=== PATIENT | male | born 1945 | race Caucasian/White ===

== ENCOUNTER 2016-12-04 17:43 | Inpatient (IN) | payer MEDICARE, OTHER ==
[~2016-12-04] VITALS: Ht 172.7 cm; Wt 79.2 kg
[2016-12-04] MEDS ORDERED: SOD CHLORIDE 0.9% 1,000 ML IV STA (18:17)
[2016-12-04] MEDS ORDERED: OMEP20CA16 PO (18:31)
[2016-12-04] MEDS ORDERED: CARV3.1260 PO (18:31)
[2016-12-04] MEDS ORDERED: CEFU500T45 PO (18:31)
[2016-12-04] MEDS ORDERED: DICL75TA2 PO (18:32)
[2016-12-04] MEDS ORDERED: SERT25TA PO (18:32)
[2016-12-04] MEDS ORDERED: SIMV20TA PO (18:32)
[2016-12-04 18:41] LABS: BASOPHIL # 0.1 10^3/ul (0.0-0.1); BASOPHILS % 0.4 % (0.0-2.0); EOSINOPHILS # 0.1 10^3/ul (0.0-0.5); EOSINOPHILS % 0.7 % (0.0-7.0); HEMATOCRIT 41.2 % (42.0-52.0); HEMOGLOBIN 14.3 g/dl (14.0-18.0); LYMPHOCYTES # 2.1 10^3/ul (0.8-2.9); LYMPHOCYTES % 15.5 % (15.0-51.0); MEAN CORPUSCULAR HEMOGLOBIN 30.3 pg (29.0-33.0); MEAN CORPUSCULAR HGB CONC 34.7 g/dl (32.0-37.0); MEAN CORPUSCULAR VOLUME 87.3 fl (82.0-101.0); MEAN PLATELET VOLUME 9.6 fl (7.4-10.4); MONOCYTE # 1.1 10^3/ul (0.3-0.9); MONOCYTES % 7.6 % (0.0-11.0); NEUTROPHILS % 74.9 % (39.0-77.0); PLATELET COUNT 277 10^3/UL (140-415); RED BLOOD COUNT 4.72 10^6/ul (4.70-6.10); WHITE BLOOD COUNT 13.8 10^3/ul (4.8-10.8)
[2016-12-04 19:04] LABS: INR 1.04; PROTIME 13.6 Sec (12.2-14.2); PT RATIO 1.1
[2016-12-04 19:05] LABS: PARTIAL THROMBOPLASTIN TIME 25.4 Sec (25.0-35.0)
[2016-12-04 19:07] LABS: CALCIUM 9.4 mg/dl (8.4-10.2); CREATININE 2.23 mg/dl (0.61-1.24); POTASSIUM 3.7 mmol/L (3.5-5.1)
--- NOTE | 2016-12-04 19:14 | RADRPT ---
PROCEDURE: XR Chest. CLINICAL INDICATION: Syncope. TECHNIQUE: Single frontal view of the chest. COMPARISON: None. FINDINGS: The cardiomediastinal silhouette is within normal limits. The lungs are clear. No signs of pleural f luid or pneumothorax are seen. The osseous structures and soft tissues are unremarkable. IMPRESSION: No evidence for active cardiopulmonary disease. RPTAT: [facility] Physician Joseph Date Time Electronically viewed and signed by Physician Joseph on 12/04/2016 19:13 RS/
[2016-12-04 19:19] LABS: TROPONIN-I 0.013 ng/ml (0.00-0.12)
[2016-12-04 20:51] LABS: CK-MB 1.25 ng/ml (0.0-2.4)
[2016-12-04 21:16] VITALS: TEMP 98.3
[2016-12-04] MEDS ORDERED: ONDANSETRON 4 MG INJ IV PRN ×2 (22:00→23:30)
[2016-12-04] MEDS ORDERED: ACETAMINOPHEN 325 MG TAB PO PRN (22:00)
[2016-12-04 22:08] LABS: ADD UMIC YES; UR ASCORBIC ACID NEGATIVE (NEGATIVE); UR BILIRUBIN (Dip) NEGATIVE (NEGATIVE); UR BLOOD (Dip) NEGATIVE (NEGATIVE); UR CLARITY SLIGHTLY CLOUDY (CLEAR); UR COLOR YELLOW (YELLOW); UR GLUCOSE (Dip) NEGATIVE (NEGATIVE); UR KETONES (Dip) NEGATIVE (NEGATIVE); UR LEUKOCYTE ESTERASE (Dip) NEGATIVE Leu/ul (NEGATIVE); UR MUCUS MODERATE /HPF (NONE SEEN); UR NITRITE (Dip) NEGATIVE (NEGATIVE); UR RBC 1 /HPF (0-5); UR SPECIFIC GRAVITY (Dip) 1.019 (1.003-1.030); UR TOTAL PROTEIN (Dip) 1+ mg/dl (NEGATIVE); UR UROBILINOGEN (Dip) NEGATIVE (NEGATIVE)
[2016-12-04 22:52] VITALS: Ht 172.7 cm; Wt 79.2 kg
[2016-12-04] MEDS ORDERED: morphine 2 MG INJ IV PRN (23:30)
--- NOTE | 2016-12-04 23:43 | ERA ---
ER Documentation Chief Complaint Date/Time DATE: 12/04/16 TIME: 23:20 Chief Complaint BIB RA FOR EVAL OF HYPOTENSION. 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 When EMS arrived, the patient' s blood pressure was very low with a systolic in the 40s. IV fluids were given with improvement of his systolic to the 70s. Patient now feels back to his normal self. 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 She did drink plenty of water but did not eat anything. When he went home, he laid on a hammock. While he was on the hammock, he felt very lightheaded and called out to his . His states that he became very pale and unresponsive. Per his son, he was able to moan when he was sternally rubbed, but did not see any comprehensible things. Patient denies chest pain, shortness of breath, headache, vision disturbance, focal weakness or numbness at this time. He denies dysuria. He is on antibiotics at this time and he states is for pain in his right groin. He is unable to explain otherwise ROS All systems reviewed and are negative except as per history of present illness. Medications Home Meds Reported Medications Diclofenac Sodium* (Diclofenac Sodium*) 75 Mg Tablet., 75 MG PO BID, #60 TAB 12/04/16 Sertraline Hcl* (Zoloft*) 25 Mg Tablet, 25 MG PO DAILY, #30 TAB 12/04/16 Simvastatin* (Zocor*) 20 Mg Tablet, 20 MG PO QHS, #30 TAB 12/04/16 Omeprazole* (Omeprazole*) 20 Mg Capsule., 20 MG PO DAILY, #30 CAP 12/04/16 Carvedilol* (Carvedilol*) 3.125 Mg Tablet, 3.125 MG PO DAILY, #60 TAB 12/04/16 Cefuroxime Axetil* (Cefuroxime Axetil*) 500 Mg Tablet, 500 MG PO BID, TAB STARTED 11-24-16 FOR 14 DAYS 12/04/16 Allergies Allergies: Coded Allergies: No Known Allergy (Unverified , 12/04/16) PMhx/Soc Medical and Surgical Hx: pt denies Medical Hx, pt denies Surgical Hx History of Surgery: No Anesthesia Reaction: No Hx Neurological Disorder: No Hx Respiratory Disorders: No Hx Cardiac Disorders: No Hx Psychiatric Problems: No Hx Miscellaneous Medical Probl: No Hx Alcohol Use: Yes (socially) Hx Substance Use: No Hx Tobacco Use: No Smoking Status: Never smoker FmHx Family History: No diabetes Physical Exam Vitals Vital Signs Date Time Temp Pulse Resp B/P Pulse Ox O2 Delivery O2 Flow Rate FiO2 12/04/16 21:16 98.3 57 14 128/89 97 Room Air 12/04/16 18:17 93/64 12/04/16 17:53 97.9 66 16 79/64 100 Physical Exam Const: Well-appearing, no distress, not diaphoretic Head: Atraumatic Eyes: Normal Conjunctiva, PERRLA, EOMI ENT: Normal External Ears, Nose and Mouth. Neck: Full range of motion..~ No meningismus.No JVD Resp: Clear to auscultation bilaterally Cardio: Regular rate and rhythm, no murmurs. 2+ distal pulses Abd: Soft, non tender, non distended. Normal bowel sounds Skin: No petechiae or rashes Back: No midline or flank tenderness Ext: No cyanosis, or edema Neur: Awake and alert And oriented 3, cranial nerves intact, strength and sensations intact in all 4 extremity Psych: Normal Mood and Affect Result Diagram: 12/04/16182412/04/161824 Results 24 hrs Laboratory Tests Test 12/04/16 18:00 12/04/16 18:25 12/04/16 18:49 12/04/16 21:35 Creatine Kinase 175IU/L Creatinine Kinase MB (Mass) 1.25ng/ml White Blood Count 13.810^3/ul Red Blood Count 4.7210^6/ul Hemoglobin 14.3g/dl Hematocrit 41.2% Mean Corpuscular Volume 87.3fl Mean Corpuscular Hemoglobin 30.3pg Mean Corpuscular Hemoglobin Concent 34.7g/dl Red Cell Distribution Width 14.0% Platelet Count 83389^3/UL Mean Platelet Volume 9.6fl Neutrophils % 74.9% Lymphocytes % 15.5% Monocytes % 7.6% Eosinophils % 0.7% Basophils % 0.4% Nucleated Red Blood Cells % 0.0/100WBC Neutrophils # (Manual) 10.310^3/ul Lymphocytes # 2.110^3/ul Monocytes # 1.110^3/ul Eosinophils # 0.110^3/ul Basophils # 0.110^3/ul Nucleated Red Blood Cells # 0.010^3/ul Prothrombin Time 13.6Sec Prothrombin Time Ratio 1.1 INR International Normalized Ratio 1.04 Activated Partial Thromboplast Time 25.4Sec Sodium Level 142mmol/L Potassium Level 3.7mmol/L Chloride Level 106mmol/L Carbon Dioxide Level 21mmol/L Anion Gap 19 Blood Urea Nitrogen 21mg/dl Creatinine 2.23mg/dl Glucose Level 121mg/dl Calcium Level 9.4mg/dl Troponin I 0.013ng/ml Bedside Glucose 132mg/dL Urine Color YELLOW Urine Clarity SLIGHTLY CLOUDY Urine pH 5.0 Urine Specific [place] 1.019 Urine Ketones NEGATIVEmg/dL Urine Nitrite NEGATIVEmg/dL Urine Bilirubin NEGATIVEmg/dL Urine Urobilinogen NEGATIVEmg/dL Urine Leukocyte Esterase NEGATIVELeu/ul Urine Microscopic RBC 1/HPF Urine Microscopic WBC 3/HPF Urine Hyaline Casts FEW/HPF Urine Mucus MODERATE/HPF Urine Hemoglobin NEGATIVEmg/dL Urine Glucose NEGATIVEmg/dL Urine Total Protein 1+mg/dl Current Medications Medications (Trade) Dose Ordered Sig/Isaiah Route PRN Reason Start Time Stop Time Status Last Admin Dose Admin Sodium Chloride (NS) 1,000 ml @ 1,000 mls/hr Q1H STAT IV 12/04/16 18:17 12/04/16 19:16 DC 12/04/16 18:22 Procedures/MDM Labs CBC: Leukocytosis without left shift CMP: No evidence of electrolyte abnormality, elevated BUN and creatinine consistent with renal failure Troponin within normal limits CK and CK-MB within normal limits UA: no evidence of infection Chest x-ray shows no acute abnormalities EKG# 1 NSR Intervals normal No acute ST/T abnormalities EKG# 2 SB Intervals normal No acute ST/T abnormalities [facility] Patient presented after syncopal episode. When he arrived, IV fluids were started. The patient symptomatically had improved. He has no symptoms of acute coronary syndrome or aortic dissection. I do not suspect pulmonary embolism. I do not suspect serious bacterial infection. Labs were consistent with acute renal failure which seems to be intrinsic. Patient's syncopal symptoms are unstable at this time and require inpatient workup. No evidence of PE or dissection at this time but occult ischemia or fatal dysrhythmia cannot be ruled out. Accepting Care Team: Current data and ongoing care discussed. Time: Time of admission Primary Provider: Rahda Consulting: none Outstanding Data: none Departure Diagnosis: Primary Impression: Syncopal episodes Qualified Code: R55 - Syncope, unspecified syncope type Additional Impressions: Hypotension Qualified Code: I95.9 - Hypotension, unspecified hypotension type Acute renal failure Qualified Code: N17.9 - Acute renal failure, unspecified acute renal failure type Condition: Serious SIDNEY GARCIA MD Dec 04, 2016 23:42
[2016-12-05] VITALS (10 sets, daily range): BP systolic 108–126; BP diastolic 66–72; PULSE 46–58; RESP 17–20
[2016-12-05] MEDS ORDERED: SOD CHLORIDE 0.9% 1,000 ML IV ONE ×2 (02:00)
--- NOTE | 2016-12-05 02:03 | HP ---
Date/Time of Note Date/Time of Note DATE: 12/05/16 TIME: 01:51 Assessment/Plan VTE Prophylaxis VTE Prophylaxis Intervention: heparin Assessment/Plan Assessment/Plan 1. Syncope, secondary to hypotension as a result of dehydration -Continue IV fluid -will trend troponin -Obtain a 2D echo and also carotid Doppler ultrasound -Cardiology consult as needed 2. Acute kidney injury, secondary to decreased renal perfusion as a result of dehydration -Continue IV fluid -will check a.m. lab and decide about renal ultrasound and nephrology consult 3. History of hypertension: Patient was initially hypotensive but now blood pressure within goal - will hold antihypertensives for now and resume as needed 4. History of dyslipidemia -will check fasting lipid in a.m. -Continue statin 5. History of depression -Continue Zoloft HPI/ROS Admit Date/Time Admit Date/Time Dec 04, 2016 at 21:36 Hx of Present Illness This is a 70-year-old male with history of hypertension, dyslipidemia, depression who presented to the emergency department complaining of loss of consciousness and lightheadedness. Patient was working outside the whole day and when he got back home he felt lightheaded and had a syncopal episode. According to family, he was unconscious even though was making sounds when he was stimulated. He did not eat the whole day even though he was drinking plenty of water. He denied chest pain, shortness of breath, palpitations, headache or seizure-like activity. When EMS arrived, he is a systolic blood pressure was in the 40s which improved to 70s after IV fluids. When he presented to the ER, initial blood pressure was 76/64 with a heart rate of 66. Labs shows a WBC of 13.6 and a creatinine of 2.23. Chest x-ray was no active disease and a urinalysis without UTI. Patient was given a liter of NS IVF. His blood pressure eventually improved to 128/89. His heart rate however is been noted to be as low as 46. EKG was no ST-T wave abnormalities. . PMH/Family/Social Social History Smoking Status: Never smoker Exam/Review of Systems Vital Signs Vitals Vital Signs Date Time Temp Pulse Resp B/P Pulse Ox O2 Delivery O2 Flow Rate FiO2 12/05/16 00:30 46 12/04/16 21:16 98.3 14 128/89 97 Room Air Exam Constitutional: alert, oriented, well developed Head: atraumatic, normocephalic Eyes: EOMI, PERRL Respiratory: clear to auscultation, normal air movement Cardiovascular: other (bradycardic with regular rhythm) Gastrointestinal: non-tender, soft Extremities: normal pulses Labs Result Diagram: 12/04/16182412/04/161824 Medications Medications Current Medications Ondansetron HCl (Zofran Inj) 4 mg Q6 PRN IV NAUSEA AND/OR VOMITING; Start at 23:30 Morphine Sulfate (morphine) 2 mg Q4 PRN IV PAIN; Start 12/04/16 at 23:30 Heparin Sodium (Porcine) (Heparin (5000 Units/0.5 ml)) 5,000 unit Q12 SC ; Start 12/04/16 at 23:00 Famotidine (Pepcid Iv) 20 mg DAILY IV ; Start 12/05/16 at 09:00 Sertraline HCl (Zoloft) 25 mg DAILY PO ; Start 12/05/16 at 09:00 Atorvastatin Calcium 20 mg 20 mg HS PO ; Start 12/04/16 at 23:30 Sodium Chloride (NS) 1,000 ml @ 100 mls/hr Q10H ONCE IV ; Start 12/05/16 at 00: 00; Stop 12/05/16 at 09:59 ARTIS CARBALLO MD Dec 05, 2016 02:03
[2016-12-05] MEDS: ATORVASTATIN 20 MG TAB PO SCH ×2 (03:45→21:31)
[2016-12-05] MEDS: HEPARIN 5,000 UNIT/0.5 ML VIAL SC SCH ×3 (03:53→21:32)
[2016-12-05 07:43] LABS: BASOPHILS % 0.4 % (0.0-2.0); EOSINOPHILS # 0.1 10^3/ul (0.0-0.5); EOSINOPHILS % 1.8 % (0.0-7.0); HEMATOCRIT 37.3 % (42.0-52.0); HEMOGLOBIN 12.7 g/dl (14.0-18.0); LYMPHOCYTES # 2.2 10^3/ul (0.8-2.9); LYMPHOCYTES % 27.7 % (15.0-51.0); MEAN CORPUSCULAR HEMOGLOBIN 29.9 pg (29.0-33.0); MEAN CORPUSCULAR VOLUME 87.8 fl (82.0-101.0); MEAN PLATELET VOLUME 9.4 fl (7.4-10.4); MONOCYTE # 0.5 10^3/ul (0.3-0.9); MONOCYTES % 6.8 % (0.0-11.0); NEUTROPHILS % 62.7 % (39.0-77.0); PLATELET COUNT 234 10^3/UL (140-415); RED BLOOD COUNT 4.25 10^6/ul (4.70-6.10); RED CELL DISTRIBUTION WIDTH 14.3 % (11.5-14.5)
[2016-12-05 08:10] LABS: ALBUMIN 3.8 g/dl (3.3-4.9); ALBUMIN/GLOBULIN RATIO 1.46; BILIRUBIN,INDIRECT 0.4 mg/dl (0-1.1); BILIRUBIN,TOTAL 0.4 mg/dl (0.2-1.3); CALCIUM 8.6 mg/dl (8.4-10.2); CHOL/HDL RATIO 3.5 RATIO; CREATININE 0.8 mg/dl (0.61-1.24); MAGNESIUM 2.4 mg/dl (1.7-2.5); PHOSPHORUS 3.8 mg/dl (2.5-4.9); TOTAL PROTEIN 6.4 g/dl (6.1-8.1)
[2016-12-05] MEDS: FAMOTIDINE 20 MG INJ IV SCH (08:18)
[2016-12-05] MEDS: SERTRALINE 50 MG TAB PO SCH (08:18)
[2016-12-05 10:23] LABS: THYROID STIMULATING HORMONE 0.922 MIU/L (0.465-4.680)
--- NOTE | 2016-12-05 14:14 | PN ---
Date/Time of Note Date/Time of Note DATE: 12/05/16 TIME: 14:11 Assessment/Plan VTE Prophylaxis VTE Prophylaxis Intervention: heparin Lines/Catheters IV Catheter Type (from [facility], [place]): Peripheral IV Urinary Cath still in place: No Assessment/Plan Problems: (1) Bradycardia Status: Acute Comment: After syncopal event he was being monitored. Monitor shows consistent bradycardia dysrhythmia. Been no other rhythm disturbances picked up yet. Because of this I will get a formalized cardiology consultation I am going to hold his beta-blockade. Please note the beta-blockade was at very low- dose (2) Hyperlipidemia Status: Chronic Comment: Continue with statin therapy. Please note the myalgias and statins should not have accounted for his presentation Qualifiers: Hyperlipidemia type: pure hypercholesterolemia Qualified Code: E78.00 - Pure hypercholesterolemia (3) Acute renal failure Status: Resolved Qualifiers: Acute renal failure type: unspecified Qualified Code: N17.9 - Acute renal failure, unspecified acute renal failure type Subjective 24 Hr Interval Summary Free Text/Dictation Charming but very stoic gentleman lying in bed patient informs that over the last year he has had intermittent episodes of lightheadedness with a few near syncope. He has been seen by his physician who apparently had prescribed carvedilol at very low dose. He had had a formalized syncopal event yesterday Constitutional: no complaints Respiratory: no complaints Cardiovascular: no complaints (Denies known palpitations, PND, orthopnea) Gastrointestinal: no complaints Exam/Review of Systems Vital Signs Vitals Vital Signs Date Time Temp Pulse Resp B/P Pulse Ox O2 Delivery O2 Flow Rate FiO2 12/05/16 12:07 52 12/05/16 12:07 98.2 17 120/69 93 12/04/16 21:16 Room Air Exam Constitutional: alert, oriented Respiratory: clear to auscultation, normal air movement Cardiovascular: nl pulses, regular rate and rhythm Gastrointestinal: nl liver, spleen, non-tender, soft Results Result Diagram: 12/05/16 0724 12/05/16 0724 Results 24 hrs Laboratory Tests Test 12/04/16 18:00 12/04/16 18:25 12/04/16 18:49 12/04/16 21:35 Creatine Kinase 175 Creatinine Kinase MB (Mass) 1.25 White Blood Count 13.8 H Red Blood Count 4.72 Hemoglobin 14.3 Hematocrit 41.2 L Mean Corpuscular Volume 87.3 Mean Corpuscular Hemoglobin 30.3 Mean Corpuscular Hemoglobin Concent 34.7 Red Cell Distribution Width 14.0 Platelet Count 277 Mean Platelet Volume 9.6 Neutrophils % 74.9 Lymphocytes % 15.5 Monocytes % 7.6 Eosinophils % 0.7 Basophils % 0.4 Nucleated Red Blood Cells % 0.0 Neutrophils # (Manual) 10.3 H Lymphocytes # 2.1 Monocytes # 1.1 H Eosinophils # 0.1 Basophils # 0.1 Nucleated Red Blood Cells # 0.0 Prothrombin Time 13.6 Prothrombin Time Ratio 1.1 INR International Normalized Ratio 1.04 Activated Partial Thromboplast Time 25.4 Sodium Level 142 Potassium Level 3.7 Chloride Level 106 Carbon Dioxide Level 21 Anion Gap 19 H Blood Urea Nitrogen 21 H Creatinine 2.23 H Glucose Level 121 Calcium Level 9.4 Troponin I 0.013 Bedside Glucose 132 Urine Color YELLOW Urine Clarity SLIGHTLY CLOUDY A Urine pH 5.0 Urine Specific [place] 1.019 Urine Ketones NEGATIVE Urine Nitrite NEGATIVE Urine Bilirubin NEGATIVE Urine Urobilinogen NEGATIVE Urine Leukocyte Esterase NEGATIVE Urine Microscopic RBC 1 Urine Microscopic WBC 3 Urine Hyaline Casts FEW A Urine Mucus MODERATE Urine Hemoglobin NEGATIVE Urine Glucose NEGATIVE Urine Total Protein 1+ H Test 12/05/16 00:06 12/05/16 07:24 12/05/16 13:12 Troponin I < 0.012 < 0.012 White Blood Count 8.0 # Red Blood Count 4.25 L Hemoglobin 12.7 L Hematocrit 37.3 L Mean Corpuscular Volume 87.8 Mean Corpuscular Hemoglobin 29.9 Mean Corpuscular Hemoglobin Concent 34.0 Red Cell Distribution Width 14.3 Platelet Count 234 Mean Platelet Volume 9.4 Neutrophils % 62.7 Lymphocytes % 27.7 Monocytes % 6.8 Eosinophils % 1.8 Basophils % 0.4 Nucleated Red Blood Cells % 0.0 Neutrophils # (Manual) 5.0 Lymphocytes # 2.2 Monocytes # 0.5 Eosinophils # 0.1 Basophils # 0.0 Nucleated Red Blood Cells # 0.0 Sodium Level 140 Potassium Level 4.0 Chloride Level 109 Carbon Dioxide Level 23 Anion Gap 12 # Blood Urea Nitrogen 19 Creatinine 0.80 # Glucose Level 96 Hemoglobin A1c 5.7 Calcium Level 8.6 Phosphorus Level 3.8 Magnesium Level 2.4 Total Bilirubin 0.4 Direct Bilirubin 0.00 Indirect Bilirubin 0.4 Aspartate Amino Transf (AST/SGOT) 42 Alanine Aminotransferase (ALT/SGPT) 58 Alkaline Phosphatase 54 Total Protein 6.4 Albumin 3.8 Globulin 2.60 Albumin/Globulin Ratio 1.46 Triglycerides Level 113 Cholesterol Level 151 LDL Cholesterol, Calculated 85 HDL Cholesterol 43 Cholesterol/HDL Ratio 3.5 Thyroid Stimulating Hormone (TSH) 0.922 Lab Scanned Report LAB Medications Medications Current Medications Ondansetron HCl (Zofran Inj) 4 mg Q6 PRN IV NAUSEA AND/OR VOMITING; Start at 23:30 Morphine Sulfate (morphine) 2 mg Q4 PRN IV PAIN; Start 12/04/16 at 23:30 Heparin Sodium (Porcine) (Heparin (5000 Units/0.5 ml)) 5,000 unit Q12 SC Last administered on 12/05/16 08:19; Admin Dose 5,000 UNIT; Start 12/04/16 at 23:00 Famotidine (Pepcid Iv) 20 mg DAILY IV Last administered on 12/05/16 08:18; Admin Dose 20 MG; Start 12/05/16 at 09:00 Sertraline HCl (Zoloft) 25 mg DAILY PO Last administered on 12/05/16 08:18; Admin Dose 25 MG; Start 12/05/16 at 09:00 Atorvastatin Calcium (Lipitor) 20 mg HS PO Last administered on 12/05/16 03:45 ; Admin Dose 20 MG; Start 12/04/16 at 23:30 REBECA PALMA MD Dec 05, 2016 14:14
--- NOTE | 2016-12-05 19:26 | RADRPT ---
PROCEDURE: US Carotids. CLINICAL INDICATION: Syncope. TECHNIQUE: Sonographic images of the bilateral carotid arteries were obtained using berry scale and color Doppler imaging. The images were reviewed on a PACS workstation. COMPARISON: None available. FINDINGS: Right: CCA 75-88 cm/sec Prox ICA 51 cm/sec Mid ICA 47 cm/sec Dist ICA 55 cm/sec ECA 87 cm/sec ICA/CCA 0.7 Left: CCA 82-101 cm/sec Prox ICA 53 cm/sec Mid ICA 72 cm/sec Dist ICA 64 cm/sec ECA 85 cm/sec ICA/CCA 0.9 Antegrade flow is seen within the vertebral arteries bilaterally. There is mild noncalcified plaque in the common carotid arteries bilaterally and mild mixed plaque in the right carotid bulb. There i s no flow-limiting stenosis or thrombosis. IMPRESSION: 1. No evidence of hemodynamically significant internal carotid artery stenosis bilaterally. 2. Antegrade flow seen within the vertebral arteries bilaterally. RPTAT: HLBP Validated velocity measurements with angiographic measurements, velocity criteria are extrapolated f rom diameter data as defined by the Society of Radiologists in Ultrasound Consensus Conference Radio logy 2003; 229;340-346. This study does indirectly reference the measurement of the distal ICA diame ter as the denominator for stenosis measurement. SRU Consensus Conference Criteria for the Diagnosis of Carotid Artery Stenosis Degree of Stenosis, % ICA PSV, cm/sec Plaque Estimate, % ICA/CCA PSV Ratio Normal <125 None <2.0 <50 <125 <50 <2.0 50 69 125-230 >50 2.0-4.0 >70 but less than near occlusion >230 >50 <4.0 Near occlusion High, low, or undetectable Visible Variable Total occlusion Undetectable Visible, no detectable lumen Not applicable .Fredi Monet MD, MD Date Time Electronically viewed and signed by .Fredi Monet MD, MD on 12/05/2016 19:26 .P/
[2016-12-06] VITALS (12 sets, daily range): BP systolic 123–153; BP diastolic 66–79; PULSE 40–58; RESP 20
[2016-12-06] MEDS: SERTRALINE 50 MG TAB PO SCH (08:59)
[2016-12-06] MEDS: FAMOTIDINE 20 MG INJ IV SCH (08:59)
[2016-12-06] MEDS: HEPARIN 5,000 UNIT/0.5 ML VIAL SC SCH ×2 (09:02→20:56)
--- NOTE | 2016-12-06 09:15 | PN ---
Date/Time of Note Date/Time of Note DATE: 12/06/16 TIME: 09:13 Assessment/Plan VTE Prophylaxis VTE Prophylaxis Intervention: heparin Lines/Catheters IV Catheter Type (from Nrs): Peripheral IV Urinary Cath still in place: No Assessment/Plan Assessment/Plan 1. Syncope secondary to dehydration vs bradycardia - Cardiology on board and recommendations appreciated - ECHO performed and awaiting results. - Will determine if stress test needed based on findings - Continue monitoring with fall precautions - Still bradycardic with HR in the 40s but asymptomatic - Carotid US performed and reviewed. Negative for stenosis 2. hyperlipidemia - Continue on statin therapy 3. Acute renal failure secondary to dehydrations- resolved. - renal function appears back to baseline 4. h/o hypertension - BP stable but slowing 5. h/o depression - Continue Zoloft Previous labs, imaging, and notes all reviewed. Subjective 24 Hr Interval Summary Free Text/Dictation Patient seen and examined at bedside. Denies any further episodes of syncope. Denies any chest pain, dizziness, shortness of breath, nausea, vomiting, or abdominal issues. Family at bedsides and all questions addressed and answered. Exam/Review of Systems Vital Signs Vitals Vital Signs Date Time Temp Pulse Resp B/P Pulse Ox O2 Delivery O2 Flow Rate FiO2 12/06/16 08:07 58 12/06/16 08:07 98.2 20 123/70 96 12/04/16 21:16 Room Air Intake and Output 12/05/16 12/05/16 12/06/16 15:00 23:00 07:00 Intake Total 950 ml Balance 950 ml Exam Constitutional: alert, oriented, in no acute distress Respiratory: clear to auscultation, normal air movement, no wheezing, rhonchi, or rales Cardiovascular: nl pulses, regular rate and rhythm, no murmurs Gastrointestinal: nl liver, spleen, non-tender, soft, nondistended Extremities: No edema, ecchymosis or cyanosis. No joint tenderness Results Result Diagram: 12/05/1672312/05/16723 Results 24 hrs Laboratory Tests Test 12/05/16 13:12 Lab Scanned Report LAB Medications Medications Current Medications Ondansetron HCl (Zofran Inj) 4 mg Q6 PRN IV NAUSEA AND/OR VOMITING; Start at 23:30 Morphine Sulfate (morphine) 2 mg Q4 PRN IV PAIN; Start 12/04/16 at 23:30 Heparin Sodium (Porcine) (Heparin (5000 Units/0.5 ml)) 5,000 unit Q12 SC Last administered on 12/05/16 21:32; Admin Dose 5,000 UNIT; Start 12/04/16 at 23:00 Famotidine (Pepcid Iv) 20 mg DAILY IV Last administered on 12/05/16 08:18; Admin Dose 20 MG; Start 12/05/16 at 09:00 Sertraline HCl (Zoloft) 25 mg DAILY PO Last administered on 12/05/16 08:18; Admin Dose 25 MG; Start 12/05/16 at 09:00 Atorvastatin Calcium (Lipitor) 20 mg HS PO Last administered on 12/05/16 21:31 ; Admin Dose 20 MG; Start 12/04/16 at 23:30 MARSHA POWERS MD Dec 06, 2016 09:15
--- NOTE | 2016-12-06 15:03 | RADRPT ---
Echocardiogram Report Patient Name: SILVIO CASTELLANOS Gender: Male Date: 1945 Study Date: 05-Dec-2016 [employer] Equipment: [id number] Location: I Ref. Physician: ARTIS CARBALLO Quality: Adequate Procedures: Transthoracic echocardiogram with 2D, M-Mode, and Doppler examination. Indications: Hypotension. Syncope. 2D/M Mode Doppler Measurement Value Normal Ranges Measurement Value Normal Ranges AoR Diam MM 4.0 cm AV Peak Kristopher 1.1 m/sec ACS MM 2.2 cm AV Peak PG 5.1 mmHg LVIDd 2D 4.6 3.5 - 5.6 cm LVOT Peak Kristopher 0.9 m/sec LVIDs 2D 3.4 2.1 - 4.1 cm LVOT Peak PG 3.1 mmHg LVPWd 2D 1.1 0.6 - 1.1 cm MV E Peak Kristopher 0.4 m/sec IVSd 2D 1.1 0.6 - 1.1 cm MV A Peak Kristopher 0.6 m/sec EDV 2D 97.2 cm3 MV E/A 0.7 ESV 2D 39.8 cm3 MV Decel Time 310 msec LA Dimen 2D 3.4 2.3 - 4.0 cm MV Decel [place] 1 MV E/A 0.7 TR Peak Kristopher 2.0 m/sec TR Peak PG 15.7 mmHg RVSP 18.7 mmHg Findings Left Ventricle: Normal left ventricular systolic function. Normal left ventricular cavity size. Normal left ventricular wall thickness. Left ventricular wall thickness upper limits of normal. Ejection fraction is visually estimated at 50 %. Tissue Doppler/Mitral Doppler indices are within normal limits. E/E`=4. Right Ventricle: Normal right ventricular size. Normal right ventricular systolic function. Left Atrium: The left atrium is normal in size. Right Atrium: The right atrium is normal in size. Atrial Septum: Normal atrial septum. Mitral Valve: Normal appearance of the mitral valve. No mitral valve regurgitation is seen. Aortic Valve: Normal appearance of the aortic valve. No significant aortic stenosis or insufficiency. Tricuspid Valve: Normal appearance of the tricuspid valve. Estimated peak PA systolic pressure 19 mmHg. There is trace tricuspid regurgitation. Pulmonic Valve: Pulmonic valve not well visualized. Pericardium: Normal pericardium with no significant pericardial effusion. Aorta: There is mild aortic root dilation. Sinus of valsalva: 4 cm. Sinotubular junction: 3 cm. IVC: IVC diameter is approx. 2cm with partial respiratory collapse. Pulmonary Artery: Not well visualized. Conclusions 1.Normal left ventricular systolic function. Normal left ventricular cavity size. Left ventricular wall thickness upper limits of normal. Ejection fraction is visually estimated at 50 %. Tissue Doppler/Mitral Doppler indices are within normal limits. E/E`=4. 2.No cardiac structural abnormalities consistant with diagnosis of syncope except for sinus bradycardia. Electronically Signed By: Benton Chase 06-Dec-2016 15:02:42 -0700 Patient Name: SILVIO CASTELLANOS Study Date: 05-Dec-2016 [id number]
[2016-12-06] MEDS: ATORVASTATIN 20 MG TAB PO SCH (20:53)
--- NOTE | 2016-12-06 22:34 | PN ---
Date/Time of Note Date/Time of Note DATE: 12/06/16 TIME: 21:59 Assessment/Plan VTE Prophylaxis VTE Prophylaxis Intervention: heparin Lines/Catheters IV Catheter Type (from Nrs): Saline Lock Urinary Cath still in place: No Assessment/Plan Assessment/Plan 1. Syncope, single event, possible dehydration during physical effort. 2. Intermittent hands and fingers contractures. PLAN: 1. Order graded treadmill exercise stress test. 2. Patient advised to keep well hydrated and cover head during work in the sun. Subjective 24 Hr Interval Summary Constitutional: improved, no complaints, other Eyes: no complaints ENT: no complaints Respiratory: no complaints Cardiovascular: lightheadedness, other (syncope, single event) Gastrointestinal: no complaints Genitourinary: no complaints Musculoskeletal: no complaints, other (frequent bilateral hand and fingers contracture) Skin: no complaints Neurologic: no complaints, syncope Endocrine: no complaints Lymphatic: no complaints Psychological: nl mood/affect, no complaints Immunologic: no complaints Exam/Review of Systems Vital Signs Vitals Vital Signs Date Time Temp Pulse Resp B/P Pulse Ox O2 Delivery O2 Flow Rate FiO2 12/06/16 19:49 97.4 49 20 132/77 96 12/04/16 21:16 Room Air Intake and Output 12/05/16 12/05/16 12/06/16 15:00 23:00 07:00 Intake Total 950 ml Balance 950 ml Exam Constitutional: alert, oriented, well developed Psych: nl mood/affect, no complaints Head: atraumatic, normocephalic Eyes: EOMI Neck: non-tender, supple Respiratory: clear to auscultation, normal air movement Cardiovascular: nl pulses Gastrointestinal: nl liver, spleen, non-tender, soft Musculoskeletal: nl extremities to inspection, nl gait and stance Extremities: normal pulses Neurological: REMEDIATION CONSULTANT II-XII intact, nl mental status, nl speech, nl strength Skin: nl turgor Results Result Diagram: 12/05/1672312/05/16723 Medications Medications Current Medications Ondansetron HCl (Zofran Inj) 4 mg Q6 PRN IV NAUSEA AND/OR VOMITING; Start at 23:30 Morphine Sulfate (morphine) 2 mg Q4 PRN IV PAIN; Start 12/04/16 at 23:30 Heparin Sodium (Porcine) (Heparin (5000 Units/0.5 ml)) 5,000 unit Q12 SC Last administered on 12/06/16 20:56; Admin Dose 5,000 UNIT; Start 12/04/16 at 23:00 Famotidine (Pepcid Iv) 20 mg DAILY IV Last administered on 12/06/16 08:59; Admin Dose 20 MG; Start 12/05/16 at 09:00 Sertraline HCl (Zoloft) 25 mg DAILY PO Last administered on 12/06/16 08:59; Admin Dose 25 MG; Start 12/05/16 at 09:00 Atorvastatin Calcium (Lipitor) 20 mg HS PO Last administered on 12/06/16 20:53 ; Admin Dose 20 MG; Start 12/04/16 at 23:30 MARC BLOCK MD Dec 06, 2016 22:09
[2016-12-07] VITALS (10 sets, daily range): BP systolic 112–140; BP diastolic 68–83; PULSE 40–56; RESP 19–20
[2016-12-07] MEDS ORDERED: REGADENOSON 0.4 MG/5 ML SYG ONE (09:19)
[2016-12-07] MEDS: SERTRALINE 50 MG TAB PO SCH (11:54)
[2016-12-07] MEDS: FAMOTIDINE 20 MG INJ IV SCH (11:55)
[2016-12-07] MEDS: HEPARIN 5,000 UNIT/0.5 ML VIAL SC SCH (11:56)
--- NOTE | 2016-12-07 12:38 | RADRPT ---
PROCEDURE: Lexiscan myocardial perfusion study CLINICAL INDICATION: 70 -year-old patient complaining of chest pain. TECHNIQUE: Lexiscan 0.4 mg intravenously separate acquisition gated myocardial perfusion SPECT usi ng Tc 99m Myoview 31.8 mCi intravenously at stress and Tc-99m Myoview, 10.9 mCi intravenously at res t was performed using the rest/stress sequence. Poststress Myoview SPECT images were obtained in th e supine position. COMPARISON: No prior studies. FINDINGS: Perfusion images reveal nonreversible perfusion abnormality in the mid to basal inferoseptal wall. Lexiscan post stress gated SPECT images demonstrate mild hypokinesis of the left ventricle. IMPRESSION: 1. No evidence of stress-induced ischemia. 2. Mild hypokinesis of the left ventricle. 3. The left ventricle ejection fraction at stress is 43%. A call report was made to Dr. Funez at 12:35 p.m. on December 07, 2016. RPTAT: HH .Angela Olivares MD, MD Date Time Electronically viewed and signed by .Angela Olivares MD, on 12/07/2016 12:38 .L/
--- NOTE | 2016-12-07 15:15 | PN ---
Date/Time of Note Date/Time of Note DATE: 12/07/16 TIME: 14:46 Assessment/Plan VTE Prophylaxis VTE Prophylaxis Intervention: LMWH Lines/Catheters IV Catheter Type (from Nrs): Saline Lock Urinary Cath still in place: No Assessment/Plan Assessment/Plan 1. Recent syncope secondary to severe dehydration. 2. Acute, transient kidney injury due to hypovolemia. 3. Pre-diabetes status (A1C 5.7). 4. Frequent bilateral hand contracture due to water and electrolyte deficiency (suspected). TEST: Normal treadmill exercise stress test (Olman protocol), conducted to maximum tolerance; No symptoms; Normal myocardial perfusion. LVEF 45% by SPECT, 50% by Echo; No perfusion defect. PLAN: Recommend discharge home with no restrictions. Patient advised to cover head and skin when working outside and drink electrolyte water in adequate amount. MARC BLOCK MD Subjective 24 Hr Interval Summary Constitutional: improved, no complaints Eyes: no complaints ENT: no complaints Respiratory: no complaints Cardiovascular: no complaints Gastrointestinal: no complaints Genitourinary: no complaints Musculoskeletal: no complaints Skin: no complaints Neurologic: no complaints Endocrine: no complaints Psychological: no complaints Exam/Review of Systems Vital Signs Vitals Vital Signs Date Time Temp Pulse Resp B/P Pulse Ox O2 Delivery O2 Flow Rate FiO2 12/07/16 12:14 98.0 59 20 131/80 98 12/04/16 21:16 Room Air Intake and Output 12/06/16 12/06/16 12/07/16 15:00 23:00 07:00 Intake Total 1200 ml 250 ml Balance 1200 ml 250 ml Exam Constitutional: alert, oriented, well developed Psych: nl mood/affect Head: atraumatic, normocephalic Eyes: EOMI Neck: non-tender, supple Respiratory: clear to auscultation, normal air movement Cardiovascular: nl pulses, regular rate and rhythm Gastrointestinal: non-tender, soft Neurological: nl mental status, nl speech, nl strength Skin: nl turgor Results Result Diagram: 12/05/1672312/05/16723 Medications Medications Current Medications Ondansetron HCl (Zofran Inj) 4 mg Q6 PRN IV NAUSEA AND/OR VOMITING; Start at 23:30 Morphine Sulfate (morphine) 2 mg Q4 PRN IV PAIN; Start 12/04/16 at 23:30 Heparin Sodium (Porcine) (Heparin (5000 Units/0.5 ml)) 5,000 unit Q12 SC Last administered on 12/07/16 11:56; Admin Dose 5,000 UNIT; Start 12/04/16 at 23:00 Famotidine (Pepcid Iv) 20 mg DAILY IV Last administered on 12/07/16 11:55; Admin Dose 20 MG; Start 12/05/16 at 09:00 Sertraline HCl (Zoloft) 25 mg DAILY PO Last administered on 12/07/16 11:54; Admin Dose 25 MG; Start 12/05/16 at 09:00 Atorvastatin Calcium (Lipitor) 20 mg HS PO Last administered on 12/06/16 20:53 ; Admin Dose 20 MG; Start 12/04/16 at 23:30 MARC BLOCK MD Dec 07, 2016 15:14
--- NOTE | 2016-12-07 16:08 | PN ---
Date/Time of Note Date/Time of Note DATE: 12/07/16 TIME: 16:00 Assessment/Plan VTE Prophylaxis VTE Prophylaxis Intervention: heparin Lines/Catheters IV [facility] Saline Lock Urinary Cath still in place: No Assessment/Plan Assessment/Plan 1. Syncope secondary to dehydration - Cardiology on board and recommendations appreciated. - Normal treadmill exercise stress test (Olman protocol), conducted to maximum tolerance; No symptoms; Normal myocardial perfusion. LVEF 45% by SPECT, 50% by Echo; No perfusion defect. - Advised patient to keep well hydrated with electrolyte rich fluids as well as cover head while out in the sun - Carotid US negative for stenosis 2. hyperlipidemia - Continue on statin therapy 3. Acute renal failure secondary to dehydrations- resolved. - renal function appears back to baseline 4. h/o hypertension - BP stable 5. h/o depression - Continue Zoloft 6. Bradycardia - patient is an active person and plays soccer with no issues - asymptomatic 7. Prediabetes - Patient was informed by PCP 6 months ago that he was prediabetic with A1c 6.0 - A1c this admission was 5.7 which is an improvement - Counseled patient on importance of following a low processed sugar, low carb diet 8. Disposition - Patient cleared by cardiology for discharge home - No acute/active issues at this time and stable for discharge home - Plan discussed with patient and at bedside. Subjective 24 Hr Interval Summary Free Text/Dictation Patient completed full three phase nuclear exercise stress test with no acute events appreciated. He is doing well and denies any chest pain, palpitations, shortness of breath, dizziness, nausea, vomiting or LOC. Exam/Review of Systems Vital Signs Vitals Vital Signs Date Time Temp Pulse Resp B/P Pulse Ox O2 Delivery O2 Flow Rate FiO2 12/07/16 12:14 98.0 59 20 131/80 98 12/04/16 21:16 Room Air Intake and Output 12/06/16 12/06/16 12/07/16 15:00 23:00 07:00 Intake Total 1200 ml 250 ml Balance 1200 ml 250 ml Exam Constitutional: alert, oriented, in no acute distress Respiratory: clear to auscultation, normal air movement, no wheezing, rhonchi, or rales Cardiovascular: regular rate and rhythm, no murmurs Gastrointestinal: soft, nondistended, non-tender, + BS Extremities: No edema, ecchymosis or cyanosis. pulses intact Results Result Diagram: 12/05/1672312/05/16723 Medications Medications Current Medications Ondansetron HCl (Zofran Inj) 4 mg Q6 PRN IV NAUSEA AND/OR VOMITING; Start at 23:30 Morphine Sulfate (morphine) 2 mg Q4 PRN IV PAIN; Start 12/04/16 at 23:30 Heparin Sodium (Porcine) (Heparin (5000 Units/0.5 ml)) 5,000 unit Q12 SC Last administered on 12/07/16 11:56; Admin Dose 5,000 UNIT; Start 12/04/16 at 23:00 Famotidine (Pepcid Iv) 20 mg DAILY IV Last administered on 12/07/16 11:55; Admin Dose 20 MG; Start 12/05/16 at 09:00 Sertraline HCl (Zoloft) 25 mg DAILY PO Last administered on 12/07/16 11:54; Admin Dose 25 MG; Start 12/05/16 at 09:00 Atorvastatin Calcium (Lipitor) 20 mg HS PO Last administered on 12/06/16 20:53 ; Admin Dose 20 MG; Start 12/04/16 at 23:30 MARSHA POWERS MD Dec 07, 2016 16:08
--- NOTE | 2016-12-07 16:12 | PDOCDIS ---
Discharge Instructions DIAGNOSIS Discharge Diagnosis Syncopal episode secondary to dehydration with prerenal kidney injury CONDITION Patient Condition: Good HOME CARE INSTRUCTIONS: Diet Instructions: Low Fat /CholesterolSpecial Diet: low sugar, low carbohydrate diet ACTIVITY: Activity Restrictions: No Restrictions FOLLOW UP/APPOINTMENTS Follow-up Plan Keep well hydrated with electrolyte rich fluids such as Pedialyte Follow up with PCP in 1-2 weeks Your A1c was 5.7 during this hospitalization. It is important to continue the diet your PCP told you to follow such as low sugar, low carbohydrate diet. Avoid greasy and fried foods Your heart workup showed no issues and if experiencing same symptoms please return to the ED or call your PCP When outdoors in the heat, keep well hydrated and wear head covering. SCHOOL/WORK RELEASE May return to School/Work on: Dec 08, 2016 May return to School/Work with: No Restrictions MARSHA POWERS MD Dec 07, 2016 16:11
--- NOTE | 2016-12-07 19:33 | DS ---
Date/Time of Note Date/Time of Note DATE: 12/07/16 TIME: 19:21 Discharge Summary Admission/Discharge Info Admit Date/Time Dec 04, 2016 at 21:36 Discharge Date/Time Dec 07, 2016 at 16:59 Discharge Diagnosis Syncopal episode secondary to dehydration with prerenal kidney injury Patient Condition: Good Consults Cardiology Hx of Present Illness This is a 70-year-old male with history of hypertension, dyslipidemia, depression who presented to the emergency department complaining of loss of consciousness and lightheadedness. Patient was working outside the whole day and when he got back home he felt lightheaded and had a syncopal episode. According to family, he was unconscious even though was making sounds when he was stimulated. He did not eat the whole day even though he was drinking plenty of water. He denied chest pain, shortness of breath, palpitations, headache or seizure-like activity. When EMS arrived, he is a systolic blood pressure was in the 40s which improved to 70s after IV fluids. When he presented to the ER, initial blood pressure was 76/64 with a heart rate of 66. Labs shows a WBC of 13.6 and a creatinine of 2.23. Chest x-ray was no active disease and a urinalysis without UTI. Patient was given a liter of NS IVF. His blood pressure eventually improved to 128/89. His heart rate however is been noted to be as low as 46. EKG was no ST-T wave abnormalities. . Hospital Course Patient was admitted to telemetry and cardiology was consulted. Patient was hydrated with IV NSS and renal function improved. Cardiac workup was performed and troponins were negative. Carotid US was performed and was negative for stenosis. Patient underwent a normal treadmill exercise stress test (Olman protocol), conducted to maximum tolerance without any symptoms and showed normal myocardial perfusion. LVEF 45% by SPECT, 50% by Echo; No perfusion defect. Patient has a history of elevated A1c in prediabetes range which has improved to 5.7. Electrolyte imbalance, dehydration, and TABBY most likely contributed to patients syncopal episode. Patient was advised patient to keep well hydrated with electrolyte rich fluids as well as cover head while out in the sun. Patient did not have any further episodes of syncope and bradycardia is most likely secondary to patient being very athletic. Patient was advised on proper diabetic diet as well and instructed to return to ED if symptoms reoccur. Patient was medically cleared for discharge by cardiology and discharged home in good condition. Home Meds Reported Medications Diclofenac Sodium* (Diclofenac Sodium*) 75 Mg Tablet.dr, 75 MG PO BID, #60 TAB 12/04/16 Sertraline Hcl* (Zoloft*) 25 Mg Tablet, 25 MG PO DAILY, #30 TAB 12/04/16 Simvastatin* (Zocor*) 20 Mg Tablet, 20 MG PO QHS, #30 TAB 12/04/16 Omeprazole* (Omeprazole*) 20 Mg Capsule.dr, 20 MG PO DAILY, #30 CAP 12/04/16 Discontinued Reported Medications Carvedilol* (Carvedilol*) 3.125 Mg Tablet, 3.125 MG PO DAILY, #60 TAB 12/04/16 Cefuroxime Axetil* (Cefuroxime Axetil*) 500 Mg Tablet, 500 MG PO BID, TAB STARTED 11-24-16 FOR 14 DAYS 12/04/16 Follow-up Plan Follow up with PCP in 1-2 weeks Keep hydrated with electrolyte rich fluid ie pedialyte Advised to continue following low processed sugar, low carb diet to avoid Diabetes All patient and 's questions were answered and concerns addressed Primary Care Provider [facility] [place] Time spent on discharge: > 30 minutes MARSHA POWERS MD Dec 07, 2016 19:31
--- NOTE | 2016-12-08 19:14 | RADRPT ---
Vent Rate: 51 bpm RR Interval: 0 msec [place] Interval: 156 msec QRS Duration: 92 msec QT Interval: 424 msec QTC Interval: 390 msec P-R-T [place]: 8 - 24 - 32 degrees Sinus bradycardia Otherwise normal ECG Electronically Signed By: Dada Funez [id number]
== END 2016-12-07 16:59 | disposition home or self-care (01) | DRG 315 ==
LOC: E/R 17:43 → PP2 21:36 → MS4 23:53
PROVIDERS: ADMIT Internal Medicine; ATTEND Internal Medicine
DX: I95.9 Hypotension, unspecified (principal); N17.9 Acute kidney failure, unspecified; E86.0 Dehydration; I10 Essential (primary) hypertension; E78.5 Hyperlipidemia, unspecified; F32.9 Major depressive disorder, single episode, unspecified; R00.1 Bradycardia, unspecified; M24.542 Contracture, left hand; M24.541 Contracture, right hand
CPT/HCPCS: 36415; 71010; 78452; 80048; 80053; 80061; 81001; 82550; 82553; 82962; 83036; 83735; 84100; 84443; 84484; 85025; 85610; 85730; 93005; 93017; 93306; 93880; A9500; A9505; J1644; J2785; J7030